=== PATIENT | male | born 1990 | race Caucasian/White ===

== ENCOUNTER 2016-11-27 21:10 | Emergency (ER) | payer SELFPAY ==
[~2016-11-27] VITALS: Ht 182.9 cm; Wt 74.6 kg
[2016-11-27 21:11] VITALS: BP 122/72
[2016-11-27] MEDS ORDERED: DEXAMETHASONE 4 MG TABLET PO STA (21:51)
[2016-11-27] MEDS ORDERED: DEXAMETHASONE 4 MG TABLET ONE (22:00)
== END 2016-11-27 22:47 | disposition home or self-care (01) ==
LOC: ED 22:30
DX: J20.8 Acute bronchitis due to other specified organisms (principal); J02.9 Acute pharyngitis, unspecified; K21.9 Gastro-esophageal reflux disease without esophagitis; F17.210 Nicotine dependence, cigarettes, uncomplicated
CPT/HCPCS: 71020; 99284

== ENCOUNTER 2017-09-12 10:42 | Emergency (ER) | payer OTHER ==
[~2017-09-12] VITALS: Ht 182.9 cm; Wt 72.5 kg
[2017-09-12 10:46] VITALS: BP 124/76
[2017-09-12] MEDS ORDERED: KETOROLAC 30 MG/1 ML ONE (11:14)
[2017-09-12] MEDS ORDERED: KETOROLAC 30 MG/1 ML IM ONE (11:30)
== END 2017-09-12 11:46 | disposition home or self-care (01) ==
LOC: ED 11:30
DX: K02.9 Dental caries, unspecified (principal)
CPT/HCPCS: 96372; 99283; J1885

== ENCOUNTER 2017-12-19 12:23 | Emergency (ER) | payer MEDICAID, OTHER ==
[~2017-12-19] VITALS: Ht 180.3 cm; Wt 74.8 kg
[2017-12-19 13:47] VITALS: BP 131/81
== END 2017-12-19 13:51 | disposition home or self-care (01) ==
LOC: ED 13:30
DX: B34.9 Viral infection, unspecified (principal); K21.9 Gastro-esophageal reflux disease without esophagitis
CPT/HCPCS: 99282

== ENCOUNTER 2018-05-15 18:35 | Emergency (ER) | payer MEDICAID ==
[~2018-05-15] VITALS: Ht 182.9 cm; Wt 71.6 kg
[2018-05-15 18:47] VITALS: BP 108/70
[2018-05-15 19:17] LABS: MICROSCOPIC NOT IND
[2018-05-15 19:23] LABS: CULTURE INDICATED? NO
[2018-05-15 19:36] LABS: BASOPHILS # (AUTO) 0.05 x10^3/uL (0-0.1); BASOPHILS % (AUTO) 1 % (0-1); EOSINOPHILS % (AUTO) 2 % (1-7); LYMPHOCYTES # (AUTO) 1.96 x10^3/uL (1-3.4); LYMPHOCYTES % (AUTO) 46 % (22-44); MD NO; MEAN CORPUSCULAR HEMOGLOBIN 29.5 pg (27.5-34.5); MEAN CORPUSCULAR HGB CONC 33.4 g/dL (33.2-36.2); MEAN CORPUSCULAR VOLUME 88.5 fL (81-97); MEAN PLATELET VOLUME 8.1 fL (7.4-10.4); MONOCYTES # (AUTO) 0.35 x10^3/uL (0.2-0.8); MONOCYTES % (AUTO) 8 % (2-9); NEUTROPHILS # (AUTO) 1.81 x10^3/uL (1.8-6.8); NEUTROPHILS % (AUTO) 43 % (42-75); PLATELET COUNT 176 x10^3/uL (130-400); RED BLOOD COUNT 4.84 x10^6/uL (4.38-5.82); RED CELL DISTRIBUTION WIDTH 12.7 % (9.4-14.8)
[2018-05-15 19:45] LABS: ALANINE AMINOTRANSFERASE 21 U/L (12-78); ALBUMIN 4.2 g/dL (3.4-5.0); ANION GAP 3 mmol/L (5-15); CALCIUM 8.9 mg/dL (8.5-10.1); CHLORIDE 107 mmol/L (98-107); CREATININE 0.96 mg/dL (0.7-1.3)
[2018-05-15 19:48] LABS: ALKALINE PHOSPHATASE 71 U/L (45-117); BILIRUBIN,TOTAL 0.6 mg/dL (0.2-1.0); TOTAL PROTEIN 7.1 g/dL (6.4-8.2)
[2018-05-15] MEDS ORDERED: methylPREDNISolone SOD SUCC 125 MG/2 ML ONE (20:22)
[2018-05-15] MEDS ORDERED: FAMOTIDINE 20 MG/2 ML ONE (20:22)
[2018-05-15] MEDS ORDERED: EPINEPHRINE 1 MG/ML, 1ML ONE (20:22)
== END 2018-05-15 20:34 | disposition home or self-care (01) ==
LOC: ED 19:50
DX: R10.30 Lower abdominal pain, unspecified (principal); R19.7 Diarrhea, unspecified; K21.9 Gastro-esophageal reflux disease without esophagitis
CPT/HCPCS: 36415; 74021; 80053; 81003; 83690; 85025; 99285

== ENCOUNTER 2018-09-06 04:56 | Emergency (ER) | payer OTHER, MEDICAID ==
[~2018-09-06] VITALS: Ht 180.3 cm; Wt 71.3 kg
[2018-09-06 04:58] VITALS: BP 122/69
[2018-09-06] MEDS ORDERED: LIDOCAINE-MPF 1%, 5ML ONE (05:23)
[2018-09-06] MEDS ORDERED: BUPIVACAINE 0.25% ONE (05:23)
[2018-09-06] MEDS ORDERED: DIPH,PERTUSS(ACELL),TET VAC/PF 0.5 ML IM-VACC ONE ×2 (05:24→05:30)
[2018-09-06] MEDS ORDERED: BUPIVACAINE/PF 0.25% INFIL ONE (05:30)
[2018-09-06] MEDS ORDERED: LIDOCAINE-MPF 1%, 5ML INFIL ONE (05:30)
== END 2018-09-06 06:31 | disposition home or self-care (01) ==
LOC: ED 05:27
DX: S61.306A Unspecified open wound of right little finger with damage to nail, initial encounter (principal); K21.9 Gastro-esophageal reflux disease without esophagitis; Z72.9 Problem related to lifestyle, unspecified; W23.0XXA Caught, crushed, jammed, or pinched between moving objects, initial encounter; Y93.89 Activity, other specified; Y92.69 Other specified industrial and construction area as the place of occurrence of the external cause; Y99.0 Civilian activity done for income or pay
CPT/HCPCS: 12001; 90471; 90715

== ENCOUNTER 2018-09-09 21:46 | Emergency (ER) | payer MEDICAID, OTHER ==
[~2018-09-09] VITALS: Ht 180.3 cm; Wt 92.3 kg
[2018-09-09 21:47] VITALS: BP_DIAS 71
--- NOTE | 2018-09-09 21:55 | NUR ---
assessment made. PA at bedside.
[2018-09-09] MEDS ORDERED: KETOROLAC 30 MG/1 ML IM ONE (22:00)
[2018-09-09] MEDS ORDERED: KETOROLAC 30 MG/1 ML ONE (22:06)
--- NOTE | 2018-09-09 22:31 | NUR ---
patient medicated for pain. wound cleaned and re-dressed. patient discharged with prescription and instruction. verbalized understanding.
[2018-09-09 22:33] VITALS: BP_SYST 119
== END 2018-09-09 22:34 | disposition home or self-care (01) ==
LOC: ED 22:29
DX: S61.411D Laceration without foreign body of right hand, subsequent encounter (principal); K21.9 Gastro-esophageal reflux disease without esophagitis; Z72.9 Problem related to lifestyle, unspecified
CPT/HCPCS: 96372; 99283; J1885

== ENCOUNTER 2018-12-12 15:45 | Emergency (ER) | payer MEDICAID, OTHER ==
[~2018-12-12] VITALS: Ht 180.3 cm; Wt 69.1 kg
[2018-12-12 15:53] VITALS: BP 124/75
[2018-12-12] MEDS ORDERED: LIDOCAINE-MPF 1%, 5ML ONE (16:11)
[2018-12-12] MEDS ORDERED: LIDOCAINE 1%, 10ML INFIL ONE (16:30)
== END 2018-12-12 17:10 | disposition home or self-care (01) ==
LOC: ED 17:07
DX: S61.011A Laceration without foreign body of right thumb without damage to nail, initial encounter (principal); K21.9 Gastro-esophageal reflux disease without esophagitis; Z72.9 Problem related to lifestyle, unspecified; W22.8XXA Striking against or struck by other objects, initial encounter; Y93.89 Activity, other specified; Y92.69 Other specified industrial and construction area as the place of occurrence of the external cause; Y99.8 Other external cause status
CPT/HCPCS: 12001; 99283; J3490

== ENCOUNTER 2018-12-20 09:35 | Emergency (ER) | payer MEDICAID ==
[~2018-12-20] VITALS: Ht 180.3 cm; Wt 70.0 kg
[2018-12-20 10:06] VITALS: BP 122/75
--- NOTE | 2018-12-20 10:13 | NUR ---
Patient/Caregiver given discharge instructions and they have confirmed that they understand the instructions. Patient ambulatory with steady gait.
== END 2018-12-20 10:15 | disposition home or self-care (01) ==
LOC: ED 10:07
DX: S61.011D Laceration without foreign body of right thumb without damage to nail, subsequent encounter (principal); X58.XXXD Exposure to other specified factors, subsequent encounter
CPT/HCPCS: 99282

== ENCOUNTER 2019-09-11 13:50 | Emergency (ER) | payer MEDICAID, OTHER ==
[~2019-09-11] VITALS: Ht 180.3 cm; Wt 69.6 kg
[2019-09-11 14:04] VITALS: BP 134/62
--- NOTE | 2019-09-11 14:24 | NUR ---
pt has a remote hx suicide attempt (pt states he attempted suicide once when he was a teenager), denies current suicidal ideation or more recent attempt. CHUCKY Randle notified. CHUCKY mcdonough'd pt to have low risk suicide precautions in place during this visit.
--- NOTE | 2019-09-11 14:56 | NUR ---
pt given dc instructions. pt a&o, resps even and unlabored, nadn. pt amb to dc desk with steady gait.
== END 2019-09-11 14:57 | disposition home or self-care (01) ==
LOC: ED 14:40
DX: J06.9 Acute upper respiratory infection, unspecified (principal); K21.9 Gastro-esophageal reflux disease without esophagitis; Z87.891 Personal history of nicotine dependence
CPT/HCPCS: 99281

== ENCOUNTER 2019-09-13 17:06 | Emergency (ER) | payer MEDICAID, OTHER ==
[~2019-09-13] VITALS: Ht 180.3 cm; Wt 69.8 kg
[2019-09-13 17:14] VITALS: BP 131/65
== END 2019-09-13 19:35 | disposition home or self-care (01) ==
LOC: ED 19:05
DX: M79.661 Pain in right lower leg (principal); M25.571 Pain in right ankle and joints of right foot; R60.0 Localized edema; F17.210 Nicotine dependence, cigarettes, uncomplicated; K21.9 Gastro-esophageal reflux disease without esophagitis
CPT/HCPCS: 99284

== ENCOUNTER 2019-10-28 19:43 | Emergency (ER) | payer SELFPAY ==
[~2019-10-28] VITALS: Ht 180.3 cm; Wt 68.8 kg
[2019-10-28] MEDS ORDERED: ONDANSETRON ODT 4 MG PO ONE (20:30)
[2019-10-28] MEDS ORDERED: NEOSPORIN OINT. PKT 1 PACKET ONE (20:48)
[2019-10-28 20:55] LABS: BASOPHILS # (AUTO) 0.03 x10^3/uL (0-0.1); BASOPHILS % (AUTO) 1 % (0-1); EOSINOPHILS # (AUTO) 0.05 x10^3/uL (0-0.4); EOSINOPHILS % (AUTO) 1 % (1-7); LYMPHOCYTES # (AUTO) 2.32 x10^3/uL (1-3.4); LYMPHOCYTES % (AUTO) 40 % (22-44); MD NO; MEAN CORPUSCULAR HEMOGLOBIN 28.2 pg (27.5-34.5); MEAN CORPUSCULAR HGB CONC 32.3 g/dL (33.2-36.2); MEAN CORPUSCULAR VOLUME 87.5 fL (81-97); MEAN PLATELET VOLUME 8.4 fL (7.4-10.4); MONOCYTES # (AUTO) 0.47 x10^3/uL (0.2-0.8); MONOCYTES % (AUTO) 8 % (2-9); NEUTROPHILS # (AUTO) 2.97 x10^3/uL (1.8-6.8); NEUTROPHILS % (AUTO) 51 % (42-75); PLATELET COUNT 172 x10^3/uL (130-400); RED CELL DISTRIBUTION WIDTH 14.9 % (9.4-14.8)
[2019-10-28 21:04] LABS: ALANINE AMINOTRANSFERASE 23 U/L (12-78); ALBUMIN 4.4 g/dL (3.4-5.0); CALCIUM 9.1 mg/dL (8.5-10.1)
[2019-10-28] MEDS ORDERED: ONDANSETRON ODT 4 MG ONE (21:04)
[2019-10-28 21:08] VITALS: BP 131/78
--- NOTE | 2019-10-28 21:09 | NUR ---
PT C/O N/V/D FOR A FEW HOURS STARTING ABOUT 1500 TODAY AFTER EATING OUT AT A [employer]. NO V/D SINCE. NAUSEA COMES IN WAVES. CONNECTED TO MONITORING. CALL LIGHT IN REACH. MEDS ADMIN PER NOV.
[2019-10-28 21:12] LABS: CHLORIDE 108 mmol/L (98-107)
[2019-10-28 21:16] LABS: ALKALINE PHOSPHATASE 88 U/L (45-117); BILIRUBIN,TOTAL 0.5 mg/dL (0.2-1.0); TOTAL PROTEIN 7.7 g/dL (6.4-8.2)
[2019-10-28 21:22] LABS: ANION GAP 3 mmol/L (5-15)
--- NOTE | 2019-10-28 21:39 | NUR ---
ALL RESULTS ARE BACK AT THIS TIME. CHART UP FOR RECHECK.
== END 2019-10-28 22:42 | disposition home or self-care (01) ==
LOC: ED 22:30
DX: K52.29 Other allergic and dietetic gastroenteritis and colitis (principal); R11.2 Nausea with vomiting, unspecified; K21.9 Gastro-esophageal reflux disease without esophagitis; Z87.891 Personal history of nicotine dependence
CPT/HCPCS: 36415; 80053; 83690; 85025; 99283; Q0162

== ENCOUNTER 2020-07-09 09:15 | Emergency (ER) | payer OTHER ==
[~2020-07-09] VITALS: Ht 180.3 cm; Wt 69.0 kg
[2020-07-09 09:18] VITALS: BP 126/69
[2020-07-09] MEDS ORDERED: MICROFIBRILLAR COLLAGEN 0.5GM/PACK TP ONE (09:30)
[2020-07-09] MEDS ORDERED: MICROFIBRILLAR COLLAGEN 1 GM TP ONE (09:47)
--- NOTE | 2020-07-09 10:26 | NUR ---
Pt up to sink to wash hands with soap and water. Avatine powder applied to pt's L thumb per order with good effect. Hemostasis achieved. Gauze and tape dressing applied, CDI. Pt provided with dressing change supplies and instructions.
== END 2020-07-09 10:30 | disposition home or self-care (01) ==
LOC: ED 10:09
DX: S61.012A Laceration without foreign body of left thumb without damage to nail, initial encounter (principal); Z21 Asymptomatic human immunodeficiency virus [HIV] infection status; Z87.891 Personal history of nicotine dependence; W26.0XXA Contact with knife, initial encounter; Y93.89 Activity, other specified; Y92.69 Other specified industrial and construction area as the place of occurrence of the external cause; Y99.8 Other external cause status
CPT/HCPCS: 99282

== ENCOUNTER 2020-11-09 19:56 | Emergency (ER) | payer MEDICAID, OTHER ==
[~2020-11-09] VITALS: Ht 182.9 cm; Wt 71.7 kg
--- NOTE | 2020-11-09 20:13 | NUR ---
INITIAL PT CONTACT. PT PRESENTS TO ED C/O LACERATION TO RIGHT MIDDLE FNGER. PT STATES "I ACCIDENTALLY CUT IT WHILE COOKING DINNER, BLEEDING HAS PRETTY MUCH STOPPED NOW". TETANUS UTD. PT DENIES ANY NEEDS AT THIS TIME. CALL LIGHT AND BELONGINGS WITHIN REACH. AWAITING ERP
[2020-11-09] MEDS ORDERED: LIDOCAINE-MPF 1%, 2ML INFIL ONE (20:30)
[2020-11-09] MEDS ORDERED: LIDOCAINE 1%, 10ML INFIL ONE (20:30)
[2020-11-09] MEDS ORDERED: LIDOCAINE-MPF 1%, 5ML ONE ×2 (20:33→20:35)
--- NOTE | 2020-11-09 21:03 | NUR ---
FLORAL DESIGNER AT BEDSIDE FOR WOUND IRRIGATION. PT TOLERATING WELL. PT DENIES ANY ADDITIONAL NEEDS AT THIS TIME. CALL LIGHT IN REACH
--- NOTE | 2020-11-09 21:05 | NUR ---
lac irrigated. ready for sutures. PA aware.
[2020-11-09 21:13] VITALS: BP 126/74
--- NOTE | 2020-11-09 21:50 | NUR ---
WOUND CLEASNED WITH NS, ABX OINTMENT AND BANDAID APPLIED. PT TOLERATED WELL.
[2020-11-09] MEDS ORDERED: NEOSPORIN OINT. PKT 1 PACKET ONE (21:52)
--- NOTE | 2020-11-09 22:01 | NUR ---
Patient given discharge instructions and they have confirmed that they understand the instructions. Patient ambulatory with steady gait.
== END 2020-11-09 22:03 | disposition home or self-care (01) ==
LOC: ED 21:45
DX: S61.212A Laceration without foreign body of right middle finger without damage to nail, initial encounter (principal); X58.XXXA Exposure to other specified factors, initial encounter; Y93.89 Activity, other specified; Y92.89 Other specified places as the place of occurrence of the external cause; Y99.8 Other external cause status
CPT/HCPCS: 12041; 99284

== ENCOUNTER 2021-01-10 14:12 | Emergency (ER) | payer MEDICAID ==
[~2021-01-10] VITALS: Ht 182.9 cm; Wt 71.6 kg
[2021-01-10 14:35] VITALS: BP 133/84
--- NOTE | 2021-01-10 15:08 | NUR ---
ORGANIC SEARCH LEAD: PT TO ROOM FROM LOBBY.
[2021-01-10 15:27] LABS: BASOPHILS % (AUTO) 0 % (0-1); EOSINOPHILS % (AUTO) 1 % (1-7); LYMPHOCYTES % (AUTO) 26 % (22-44); MEAN CORPUSCULAR HEMOGLOBIN 30.3 pg (27.5-34.5); MEAN CORPUSCULAR HGB CONC 33.1 g/dL (33.2-36.2); MEAN PLATELET VOLUME 8.1 fL (7.4-10.4); MONOCYTES % (AUTO) 8 % (2-9); NEUTROPHILS % (AUTO) 66 % (42-75); PLATELET COUNT 218 x10^3/uL (130-400); RED BLOOD COUNT 4.57 x10^6/uL (4.38-5.82); RED CELL DISTRIBUTION WIDTH 14.9 % (9.4-14.8)
[2021-01-10 15:37] LABS: MD NO
[2021-01-10] MEDS ORDERED: KETOROLAC 30 MG/1 ML ONE (15:57)
[2021-01-10] MEDS ORDERED: NEOSPORIN OINT. PKT 1 PACKET ONE (15:57)
--- NOTE | 2021-01-10 16:12 | NUR ---
Patient given discharge instructions and prescriptions and they have confirmed that they understand the instructions. Dental referral and work note provided to patient. Patient ambulatory with steady gait from ED.
[2021-01-10] MEDS ORDERED: KETOROLAC 30 MG/1 ML IM ONE (16:30)
== END 2021-01-10 16:13 | disposition home or self-care (01) ==
LOC: ED 15:58
DX: K02.9 Dental caries, unspecified (principal); R51.9 Headache, unspecified; K21.9 Gastro-esophageal reflux disease without esophagitis; Z72.9 Problem related to lifestyle, unspecified
CPT/HCPCS: 36415; 85025; 96372; 99283; J1885

== ENCOUNTER 2021-03-26 11:10 | Emergency (ER) | payer MEDICAID ==
[~2021-03-26] VITALS: Ht 182.9 cm; Wt 66.3 kg
[2021-03-26] MEDS ORDERED: SODIUM CHLORIDE 0.9% 1,000ML IVBOLUS ONE (12:00)
[2021-03-26 12:19] LABS: BASOPHILS % (AUTO) 0 % (0-1); EOSINOPHILS % (AUTO) 1 % (1-7); LYMPHOCYTES % (AUTO) 13 % (22-44); MEAN CORPUSCULAR HEMOGLOBIN 30.3 pg (27.5-34.5); MEAN CORPUSCULAR HGB CONC 32.9 g/dL (33.2-36.2); MEAN PLATELET VOLUME 8.2 fL (7.4-10.4); MONOCYTES % (AUTO) 9 % (2-9); NEUTROPHILS % (AUTO) 78 % (42-75); PLATELET COUNT 196 x10^3/uL (130-400); RED CELL DISTRIBUTION WIDTH 15.4 % (9.4-14.8)
[2021-03-26 12:30] LABS: ALBUMIN 4.4 g/dL (3.4-5.0); ANION GAP 4 mmol/L (5-15); CALCIUM 9.5 mg/dL (8.5-10.1); CHLORIDE 105 mmol/L (98-107); CREATININE 1.05 mg/dL (0.7-1.3)
[2021-03-26] MEDS ORDERED: OMNIPAQUE 350 MG/ML, 75ML BOTTLE ONE (13:11)
[2021-03-26] MEDS ORDERED: ONDANSETRON 2MG/ML, 2ML IVPush ONE (14:00)
[2021-03-26] MEDS ORDERED: MORPHINE SULFATE 4 MG/ML, 1ML IVPush PRN (14:00)
[2021-03-26] MEDS ORDERED: MORPHINE SULFATE 4 MG/ML, 1ML ONE (14:10)
[2021-03-26] MEDS ORDERED: ONDANSETRON 2MG/ML, 2ML ONE (14:10)
[2021-03-26] MEDS ORDERED: BUPIVACAINE 0.25% ONE (14:14)
[2021-03-26] MEDS ORDERED: BUPIVACAINE/PF-EPI 0.25% 1:200K SQ ONE (14:30)
[2021-03-26 15:08] VITALS: BP 134/94
--- NOTE | 2021-03-26 15:08 | NUR ---
PT REC'VD DISCHARGE INSTRUCTIONS AND EDUCATIION. PT HAD NO FURTHER QUESTIONS. PT AMBULATED TO DC AREA, STEADY GAIT.
== END 2021-03-26 16:29 | disposition home or self-care (01) ==
LOC: ED 13:25
DX: K04.7 Periapical abscess without sinus (principal); K21.9 Gastro-esophageal reflux disease without esophagitis; Z21 Asymptomatic human immunodeficiency virus [HIV] infection status
CPT/HCPCS: 36415; 41800; 70487; 80048; 82040; 85025; 96361; 96374; 96375; 99285; J2270; J2405; J7030; Q9967

== ENCOUNTER 2021-04-26 08:12 | Emergency (ER) | payer MEDICAID ==
[~2021-04-26] VITALS: Ht 182.9 cm; Wt 66.4 kg
[2021-04-26 08:19] VITALS: BP 118/72
--- NOTE | 2021-04-26 09:10 | NUR ---
GLOVE CUFFER: PT TO ROOM FROM PATRICIA NOLAN
--- NOTE | 2021-04-26 09:12 | NUR ---
FIRST CONTACT: sinus congestion, productive cough, no fever x5 days. NO COVID vaccine. PT TO ROOM WITH STEADY GAIT. POSTIONED TO COMFORT. ATTACHED TO MONITORS. BECKY.
--- NOTE | 2021-04-26 09:18 | NUR ---
DR. ALICIA EVALUATED BEDSIDE. COVID SWAB. VSS. NADN.
== END 2021-04-26 09:57 | disposition home or self-care (01) ==
LOC: ED 09:11
DX: B34.9 Viral infection, unspecified (principal); Z20.822 Contact with and (suspected) exposure to COVID-19; K21.9 Gastro-esophageal reflux disease without esophagitis
CPT/HCPCS: 99283; U0003; U0005